=== PATIENT | female | born 1975 | race Two or more races ===

== ENCOUNTER 2024-07-24 15:00 | Emergency (ER) | payer OTHER, SELFPAY ==
[2024-07-24] VITALS (13 sets, daily range): BP systolic 98–127; BP diastolic 72–81; PULSE 66–83; TEMP 37.1; O2SAT 95–100; BMI 27.3
--- NOTE | 2024-07-24 15:04 | ECG_ITS ---
The [facility] Test Date: 2024-07-24 Pat Name: Michelle Christian Department: Room: - Gender: Female Test Data Developer: : 1975 Requested By: Order Number: [id number] Reading MD: PRIMO BAHENA Measurements Intervals [place] Rate: 77 P: 48 CA: 144 QRS: 40 QRSD: 84 T: 60 QT: 374 QTc: 405 Interpretive Statements 1100 Sinus rhythm 4068 Nonspecific [place] abnormality 9130 borderline ECG No previous ECG available for comparison Electronically Signed On 07-25-2024 7:01:43 EST by PRIMO BAHENA
--- NOTE | 2024-07-24 15:05 | XR_ITS ---
The [address] [address] Patient Name: TERRELL CHURCH MRN: [id number] date: 1975 Sex: F Assigned Patient Location: ED.MAIN Current Patient Location: Accession/Order Number: [id number] Exam Date: 07/24/2024 15:22 Report Date: 07/24/2024 18:37 At the request of: DIANA ALSTON Procedure: XR chest 1V PORTABLE CHEST X-RAY. CLINICAL HISTORY: flu a hx COMPARISON: None. TECHNIQUE: Single AP portable chest radiograph. FINDINGS: TUBES AND LINES: None. LUNGS: Lungs are clear. PLEURA: No effusions or pneumothorax. HEART AND MEDIASTINUM: Within normal limits for portable technique. OSSEOUS STRUCTURES: No acute abnormality. XR/XR chest 1V IMPRESSION: No acute findings. Electronically authenticated by: JOSEFA MCKEON Date: 07/24/2024 18:37
[2024-07-24 15:20] LABS: Basophils Percent Auto 0.4 % (0.2-2.0); Eosinophils Percent Auto 0.2 % (0.9-7.0); Hematocrit 43.5 % (36.0-48.0); Hemoglobin 14.2 g/dL (12.0-16.0); Immature Granulocytes Abs Auto 0.01 10^3/uL (0.00-0.03); Immature Granulocytes Pct Auto 0.2 % (0.0-0.5); Lymphocytes Absolute Auto 1.1 10^3/uL (1.2-3.8); Lymphocytes Percent Auto 19.9 % (20.5-60.0); Mean Corpuscular HGB Conc 32.6 g/dL (29.9-35.2); Mean Corpuscular Hemoglobin 26.2 pg (26.7-34.0); Mean Corpuscular Volume 80.4 fL (81.0-99.0); Mean Platelet Volume 10.9 fL (9.5-13.5); Monocytes Percent Auto 18.6 % (1.7-12.0); Neutrophils Absolute Auto 3.3 10^3/uL (1.4-6.5); Neutrophils Percent Auto 60.7 % (43.0-75.0); Platelet Count 234 10^3/uL (150-450); Red Blood Count 5.41 10^6/uL (4.20-5.40); Red Cell Distribution Width 14.8 % (11.0-15.0); White Blood Count 5.4 10^3/uL (4.0-11.0)
[2024-07-24] MEDS: 0.9 % SODIUM CHLORIDE 1,000 ML 1000 ML IV (15:29)
[2024-07-24 15:34] LABS: INR 1.14; Prothrombin Time 11.9 sec (9.0-11.6)
[2024-07-24 15:38] LABS: Alanine Aminotransferase 17 U/L (14-59); Alkaline Phosphatase 83 U/L (46-116); Aspartate Amino Transferase 22 U/L (15-37); BUN Creatinine Ratio 15.3; Bilirubin Total 0.6 mg/dL (0.2-1.0); Calcium 8.9 mg/dL (8.5-10.1); Carbon Dioxide 24.9 mmol/L (21.0-32.0); Chloride 99 mmol/L (98-107); Estimated GFR (African America >60 (>=60 mL/min/1.73m^2); Estimated GFR (Non-African Ame 52 (>=60 mL/min/1.73m^2); Globulin 4.1 g/dL; Glucose 131 mg/dL (74-106); Sodium 136 mmol/L (136-145); Total Protein 8.1 g/dL (6.4-8.2)
[2024-07-24 15:39] LABS: Lactate/Lactic Acid 1.1 mmol/L (0.4-2.0)
[2024-07-24 15:41] LABS: Magnesium 2.4 mg/dL (1.8-2.4); Troponin I High Sensitivity 7.6 pg/mL (4.0-51.3)
[2024-07-24 15:42] LABS: Potassium 2.9 mmol/L (3.5-5.1)
[2024-07-24] MEDS: POTASSIUM BICARBONATE/CIT 25 MEQ TABLET EFF 50 MEQ PO (16:18)
[2024-07-24 16:49] LABS: Troponin I High Sensitivity 8.9 pg/mL (4.0-51.3)
--- NOTE | 2024-07-24 17:14 | ED_ITS ---
HPI HPI - General Adult General Chief complaint: Syncope Stated complaint: Flu A Time Seen by Provider: 07/24/24 15:02 Source: patient Mode of arrival: ambulance History of Present Illness HPI narrative: The patient is a 49 years old female who is coming to the ER after she was in urgent care and diagnosed with flu a, the patient apparently was in the urgent care when she felt like she passed out, she brought to us by the EMS for possibly passing after 15-second, when asked the patient mentioned that she was hearing people around her but she did not know what they are saying There is no upper or lower extremity movement there was no chest pain before or after, the patient did admit that she has been having generalized body ache as well as fever and decreased p.o. intake Related Data Previous Rx's ?Medication ?Instructions ?Recorded potassium bicarbonate-citric acid 25 meq PO DAILY 3 days #3 ea 07/24/24 25 mEq effervescent tablet Allergies Allergy/AdvReac Type Severity Reaction Status Date / Time No Known Drug Allergies Allergy Verified 07/24/24 15:05 Opioid HPI Opioid Management Most Recent Opioid Data: No Data to Display Review of Systems ROS Status of ROS 10 or more systems reviewed and unremark able except as noted in history and below PFSH PFSH Social History Little interest or pleasure in doing things: not at all Feeling down, depressed, or hopeless: not at all Exam Narrative Exam Narrative: Nurses notes and vital signs reviewed and patient is not hypoxic. General: Well-appearing and in no apparent distress. Skin: Warm, dry, no pallor noted. No rash. Head: Normocephalic, atraumatic. Neck: Supple, non-tender. Eye: Pupils are equal, round and EOMI. No scleral icterus. Ears, Nose, Mouth, and Throat: TM are clear, no nasal mucosal hypertrophy. Oral mucosa is moist, no posterior oropharynx erythema, uvula is mid-line Cardiovascular: Regular Rate and Rhythm without murmur, gallop or rub. Respiratory: No accessory muscle use or respiratory distress. Lungs are clear to auscultation, no wheezing, rales or rhonchi Chest Wall: no tenderness Back: No midline thoracic or lumbar vertebral tenderness. No CVA tenderness Musculoskeletal: normal ROM, no calf or popliteal tenderness, no lower extremity edema/swelling GI: Abdomen is soft, non-distended. Normal bowel sounds. No masses appreciated. No tenderness to palpation. No rebound, guarding, or rigidity noted. Neurological: A&O x4. No cranial nerve dysfunction observed. No truncal ataxia. Moves all extremities. Sensation intact. Psychiatric: Cooperative and interactive. Normal mood and affect. Constitutional Vital Signs, click to edit/add: Last Vital Signs Temp 98.7 F 07/24/24 15:02 Pulse 68 07/24/24 17:00 Resp 19 07/24/24 17:00 BP 127/75 07/24/24 16:30 Pulse Ox 98 07/24/24 17:00 O2 Del Method Room Air 07/24/24 15:08 Course Vital Signs Vital signs: Vital Signs Temperature 98.7 F 07/24/24 15:02 Pulse Rate 77 07/24/24 15:02 Respiratory Rate 16 07/24/24 15:02 Blood Pressure 105/75 07/24/24 15:02 Pulse Oximetry 99 07/24/24 15:02 Oxygen Delivery Method Room Air 07/24/24 15:02 Temperature 98.7 F 07/24/24 15:02 Pulse Rate 68 07/24/24 17:00 Respiratory Rate 19 07/24/24 17:00 Blood Pressure 127/75 07/24/24 16:30 Pulse Oximetry 98 07/24/24 17:00 Oxygen Delivery Method Room Air 07/24/24 15:08 Medical Decision Making [facility] Narrative Medical decision making narrative: The patient EKG showing sinus rhythm with a heart rate of [address] elevation or depression CBC and chemistry showed no acute pathology except for hypokalemia The patient provided p.o. potassium here that she tolerated very well There were no EKG changes of hypokalemia Chest x-ray showed no acute pathology Patient was discharged with hydration and rest The patient is to follow up with primary care physician in next 2-3 days or to return to the emergency department should any of the signs or symptoms worsen or new symptoms develop. The patient agrees with the following Diagnosis and Treatment plan and the patient will be discharged home. Lab Data Labs: Lab Results 07/24/24 07/24/24 Range/Units 15:16 16:24 WBC 5.4 (4.0-11.0) 10^3/uL RBC 5.41 H (4.20-5.40) 10^6/uL Hgb 14.2 (12.0-16.0) g/dL Hct 43.5 (36.0-48.0) % MCV 80.4 L (81.0-99.0) fL MCH 26.2 L (26.7-34.0) pg MCHC 32.6 (29.9-35.2) g/dL RDW 14.8 (11.0-15.0) % Plt Count 234 (150-450) 10^3/uL MPV 10.9 (9.5-13.5) fL Neut % (Auto) 60.7 (43.0-75.0) % Lymph % (Auto) 19.9 L (20.5-60.0) % Price % (Auto) 18.6 H (1.7-12.0) % Eos % (Auto) 0.2 L (0.9-7.0) % Baso % (Auto) 0.4 (0.2-2.0) % Neut # (Auto) 3.3 (1.4-6.5) 10^3/uL Lymph # (Auto) 1.1 L (1.2-3.8) 10^3/uL Price # (Auto) 1.0 H (0.3-0.8) 10^3/uL Eos # (Auto) 0.0 (0.0-0.7) 10^3/uL Baso # (Auto) 0.0 (0.0-0.1) 10^3/uL Abs Immat Gran (auto) 0.01 (0.00-0.03) 10^3/uL Imm/Tot Granulo (auto) 0.2 (0.0-0.5) % PT 11.9 H (9.0-11.6) sec INR 1.14 Sodium 136 (136-145) mmol/L Potassium 2.9 L* (3.5-5.1) mmol/L Chloride 99 (98-107) mmol/L Carbon Dioxide 24.9 (21.0-32.0) mmol/L Anion Gap 15.0 BUN 17.0 (7.0-18.0) mg/dL Creatinine 1.11 H (0.55-1.02) mg/dL Est GFR ( Amer) >60 (>=60 mL/min/1.73m^2) Est GFR (Non-Af Amer) 52 L (>=60 mL/min/1.73m^2) BUN/Creatinine Ratio 15.3 Glucose 131 H (74-106) mg/dL Lactate 1.1 (0.4-2.0) mmol/L Calcium 8.9 (8.5-10.1) mg/dL Magnesium 2.4 (1.8-2.4) mg/dL Total Bilirubin 0.6 (0.2-1.0) mg/dL AST 22 (15-37) U/L ALT 17 (14-59) U/L Alkaline Phosphatase 83 (46-116) U/L Troponin I High Sens 7.6 8.9 (4.0-51.3) pg/mL Total Protein 8.1 (6.4-8.2) g/dL Albumin 4.0 (3.4-5.0) g/dL Globulin 4.1 g/dL Albumin/Globulin Ratio 1.0 Discharge Plan Discharge Chief Complaint: Syncope Clinical Impression: Hypokalemia, Flu Patient Disposition: Home, Self-Care Time of Disposition Decision: 17:14 Condition: Good Mode of Transportation: Private Vehicle Prescriptions / Home Meds: New potassium bicarb-citric acid 25 mEq tablet, effervescent 25 meq PO DAILY 3 Days Qty: 3 0RF Print Language: Jamaican Instructions: Hypokalemia (ED), Influenza (DC) Referrals: Physician,Non-Staff, MD [Primary Care Provider] - 1 week Discharge Date/Time: 07/24/24 17:25
== END 2024-07-24 17:25 | disposition home or self-care (01) ==
PROVIDERS: Emergency Provider Emergency Medicine
DX: E87.6 Hypokalemia (principal); J10.1 Influenza due to other identified influenza virus with other respiratory manifestations; R55 Syncope and collapse
CPT/HCPCS: 36415; 71045; 80053; 83605; 83735; 84484; 85025; 85610; 93005; 96360; 99285